=== PATIENT | female | born 1975 | race Asian ===

== ENCOUNTER 2017-11-15 15:41 | Outpatient (CLI) | payer BC, SELFPAY ==
[2017-11-15 18:05] LABS: ESR 18 MM/HR (0-20)
[2017-11-15 22:32] LABS: C-Reactive Protein 0.06 mg/dL (0.0-0.3)
[2017-11-18 09:56] LABS: Cyclic Citrullinated Peptide <2.5 U/mL (<5.0)
== END 2017-11-15 16:01 ==
PROVIDERS: Visit Provider Internal Medicine Rheumatology
DX: K13.79 Other lesions of oral mucosa (principal); M25.50 Pain in unspecified joint; R00.0 Tachycardia, unspecified
CPT/HCPCS: 36415; 85652; 86200; 84443; 86140

== ENCOUNTER 2017-12-13 13:40 | Outpatient (CLI) | payer BC, SELFPAY ==
[2017-12-16 11:22] LABS: Hepatitis C Ab w Rflx HCV PCR Negative (NEGAT)
[2017-12-16 12:07] LABS: Hepatitis B Surface Ag Negative (NEGAT)
== END 2017-12-13 14:00 ==
PROVIDERS: Visit Provider Internal Medicine Rheumatology
DX: M25.50 Pain in unspecified joint (principal); R94.5 Abnormal results of liver function studies
CPT/HCPCS: 36415; 86803; 87340

== ENCOUNTER 2017-12-23 09:11 | Outpatient (CLI) | payer BC, SELFPAY ==
--- NOTE | 2017-12-23 09:25 | DI.RAD_ITS ---
SYMPTOM/DIAGNOSIS: RT SHOULDER PAIN RIGHT SHOULDER: The AC joint and glenohumeral joint are unremarkable. There are no significant degenerative changes. There is a calcification seen superior to the greater tuberosity which could indicate calcific tendinosis.
== END 2017-12-23 09:31 ==
PROVIDERS: Visit Provider Student in an Organized Health Care Education/Training Program
DX: M25.511 Pain in right shoulder (principal)
CPT/HCPCS: 73030

== ENCOUNTER 2018-04-07 01:03 | Outpatient (CLI) | payer BC, SELFPAY ==
--- NOTE | 2018-04-07 10:02 | DI.MRI_ITS ---
SYMPTOMS/DIAGNOSIS: RIGHT SHOULDER PAIN, WORSE WITH PHYSICAL THERAPY, M75.81 MRI OF THE RIGHT SHOULDER: Comparison is made with December,. Proton density and fat-suppressed T2 axial and coronal and T1 fat-suppressed and T2 sagittal sequences were performed. A small calcification is seen in the distal supraspinatus tendon. There is minimally increased signal in the distal supraspinatus tendon, but no evidence of a discrete tear. There is a minimal amount of fluid in the subacromial-subdeltoid bursa. There is no significant joint effusion. There is no muscle atrophy. The infraspinatus, subscapularis and biceps tendons appear intact. There are no gross labral defects. IMPRESSION: Mild calcific tendinosis of the supraspinatus.
== END 2018-04-07 01:23 ==
PROVIDERS: PCP Family Medicine; Visit Provider Student in an Organized Health Care Education/Training Program
DX: M25.511 Pain in right shoulder (principal); M75.31 Calcific tendinitis of right shoulder; M75.81 Other shoulder lesions, right shoulder
CPT/HCPCS: 73221